=== PATIENT | male | born 1995 | race Caucasian/White ===

== ENCOUNTER 2017-09-16 18:53 | Emergency (ER) | payer OTHER ==
[~2017-09-16] VITALS: Ht 165.1 cm; Wt 107.0 kg
[2017-09-16 19:21] VITALS: Ht 165.1 cm; Wt 107.0 kg
[2017-09-16] MEDS ORDERED: LEVALBUTEROL (NEB) 1.25 MG/0.5 ML AMP INH STA (20:37)
[2017-09-16] MEDS ORDERED: IPRATROPIUM (NEB) 0.5 MG/2.5 ML AMP NEB STA (20:37)
[2017-09-16] MEDS ORDERED: predniSONE 20 MG TAB PO STA (20:37)
--- NOTE | 2017-09-16 21:38 | RADRPT ---
PROCEDURE: XR Chest. CLINICAL INDICATION: chest pain TECHNIQUE: Single frontal view of the chest was obtained COMPARISON: None FINDINGS: The heart and mediastinum are within normal limits. There are left mid lung and left lower lobe linear atelectatic changes. The lungs are otherwise clear. There is no pleural effusion or pneumothorax. RPTAT: AA IMPRESSION: Scattered left lung atelectatic changes. .Logan Cardoza MD, MD Date Time Electronically viewed and signed by .Logan Cardoza MD, on 09/16/2017 21:38 .S/
[2017-09-16] MEDS ORDERED: PRED20TA PO (22:29)
[2017-09-16] MEDS ORDERED: ALBU8.5H3 INH (22:29)
--- NOTE | 2017-09-16 22:36 | ERD ---
ER Documentation Chief Complaint Chief Complaint PT REQUESTS MED REFILL FOR HIS INHALER HPI Patient is a 21-year-old male with a past medical history of asthma presents to the ED for concerns of a refill for his inhaler. Patient states for the last 4 days he has had a dry cough. Patient reports worse cough at night. Patient also does report some clear rhinorrhea. Patient has occasional wheezing. Patient denies any fevers, chills, nausea, vomiting, chest pain, shortness of breath or loss consciousness. No recent travel. No sick contacts. ROS All systems reviewed and are negative except as per history of present illness. Medications Home Meds Active Scripts Albuterol Sulfate* (Proair HFA*) 8.5 Gm Hfa.aer.ad, 2 PUFF INH Q4, #1 INHALER Prov:CARLOS EDUARDO MENEZES PA-C 09/16/17 Prednisone* (Prednisone*) 20 Mg Tab, 40 MG PO DAILY for 4 Days, TAB Prov:CARLOS EDUARDO MENEZES PA-C 09/16/17 Allergies Allergies: Coded Allergies: No Known Allergy (Unverified , 09/16/17) PMhx/Soc History of Surgery: No Anesthesia Reaction: No Hx Neurological Disorder: No Hx Respiratory Disorders: Yes (asthma) Hx Cardiac Disorders: No Hx Psychiatric Problems: No Hx Miscellaneous Medical Probl: No Hx Alcohol Use: No Hx Substance Use: No Hx Tobacco Use: No FmHx Family History: No diabetes Physical Exam Vitals Vital Signs Date Time Temp Pulse Resp B/P Pulse Ox O2 Delivery O2 Flow Rate FiO2 09/16/17 22:40 98.5 87 18 120/75 99 Room Air 09/16/17 21:30 Vapotherm 10 09/16/17 20:52 104 20 98 21 09/16/17 19:21 98.8 103 18 123/78 96 Physical Exam GENERAL: Well-developed, well-nourished male. Appears in no acute distress. Speaking in full sentences. HEAD: Normocephalic, atraumatic. EYES: Pupils are equally reactive bilaterally. EOMs grossly intact. No conjunctival erythema. ENT: Moist mucous membranes. No uvula deviation. No kissing tonsils. NECK: Supple. No meningismus. Normal range of motion of the neck. LUNG: Normal expiratory wheezes noted bilaterally. No abdominal retractions, no nasal flaring, no tripoding. HEART: Regular rate and rhythm. EXTREMITIES: Equal pulses bilaterally. No peripheral clubbing, cyanosis or edema. No unilateral leg swelling. NEUROLOGIC: Alert and oriented. Moving all four extremities without any difficulty. Normal speech. Steady gait. SKIN: Normal color. Warm and dry. No rashes or lesions. Results 24 hrs Current Medications Medications (Trade) Dose Ordered Sig/Jacey Route PRN Reason Start Time Stop Time Status Last Admin Dose Admin Ipratropium [place] (Atrovent 0.02% (Neb)) 0.5 mg ONCE STAT NEB 09/16/17 20:37 09/16/17 20:38 DC 09/16/17 20:52 Prednisone (Prednisone) 60 mg ONCE STAT PO 09/16/17 20:37 09/16/17 20:38 DC 09/16/17 21:28 Levalbuterol (Xopenex Neb) 1.25 mg ONCE STAT INH 09/16/17 20:37 09/16/17 20:38 DC 09/16/17 20:52 Procedures/MDM ED COURSE: The patient was stable throughout ED course. I kept the patient and/or family informed of laboratory and diagnostic imaging results throughout the ED course. DIAGNOSTIC IMAGING: Read by radiologist. DIAGNOSTIC IMAGING REPORT Patient: JAZLYN PALMER : 1995 Age: 21 Sex: M MR #: [id number] DOS: 09/16/172036 Ordering MD: CARLOS EDUARDO MENEZES PA-C Location: [facility] Room/Bed: PROCEDURE: XR Chest. CLINICAL INDICATION: chest pain TECHNIQUE: Single frontal view of the chest was obtained COMPARISON: None FINDINGS: The heart and mediastinum are within normal limits. There are left mid lung and left lower lobe linear atelectatic changes. The lungs are otherwise clear. There is no pleural effusion or pneumothorax. RPTAT: AA IMPRESSION: Scattered left lung atelectatic changes. .Logan Cardoza MD, Date Time Electronically viewed and signed by .Logan Cardoza MD, on 09/16/2017 21: 38 .S/ CC: CARLOS EDUARDO MENEZES PA-C PROCEDURES: None. MEDICATIONS GIVEN: Prednisone, ipratropium, Xopenex Patient tolerated medication well with no adverse reactions. MEDICAL DECISION MAKING: This is a 21-year-old male who presents to the ED for concerns of a dry cough for the last 4 days as well as a refill for of his albuterol inhaler. Vital signs were reviewed. Patient was afebrile. Patient was not hypoxic. ENT exam was normal. Lung exam revealed minimal bilateral expiratory wheezes. Patient was given a breathing treatment here in the ED as well as prednisone. Patient was noted to have improved breath sounds on my reexamination.. Patient continued to have no nasal flaring, no tripoding, no abdominal retractions. Chest x-ray showed scattered left lung atelectatic changes. Given these findings, the patient's presentation is most consistent with an exacerbation secondary to viral illness. Low suspicion for pneumothorax, pleural effusion,, pneumonia, meningitis, sinusitis, otitis externa, acute otitis media, strep pharyngitis, epiglottitis or peritonsillar abscess. Patient was nontoxic, non- ill-appearing prior to discharge. Her symptoms are significantly improved and felt that he wished to go home. PRESCRIPTIONS: Prednisone, albuterol inhaler DISCHARGE: At this time, patient is stable for discharge and outpatient management. Supportive therapies such as OTC throat lozenges, salt water gurgles, popsicles and jello discussed. I have instructed the patient to follow-up with his/her primary care physician in 1-2 days. I have instructed the patient to promptly return to the ER for any new or worsening symptoms including increased pain, swelling, fever, nausea, vomiting, weakness or difficulty breathing. The patient and/or family expressed understanding of and agreement with this plan. All questions were answered. Home care instructions were provided. Disclaimer: Inadvertent spelling and grammatical errors are likely due to EHR/ dictation software use and do not reflect on the overall quality of patient care. Also, please note that the electronic time recorded on this note does not necessarily reflect the actual time of the patient encounter. Departure Diagnosis: Primary Impression: Asthma with acute exacerbation Asthma severity: unspecified severity Asthma persistence: unspecified Qualified Code: J45.902 - Asthma with acute exacerbation, unspecified asthma severity, unspecified whether persistent Condition: Stable Patient Instructions: Asthma, Acute (Adult) Referrals: [facility] YOU HAVE RECEIVED A MEDICAL SCREENING EXAM AND THE RESULTS INDICATE THAT YOU DO NOT HAVE A CONDITION THAT REQUIRES URGENT TREATMENT IN THE EMERGENCY DEPARTMENT. FURTHER EVALUATION AND TREATMENT OF YOUR CONDITION CAN WAIT UNTIL YOU ARE SEEN IN YOUR DOCTORS OFFICE WITHIN THE NEXT 1-2 DAYS. IT IS YOUR RESPONSIBILITY TO MAKE AN APPOINTMENT FOR FOLOW-UP CARE. IF YOU HAVE A PRIMARY DOCTOR --you should call your primary doctor and schedule an appointment IF YOU DO NOT HAVE A PRIMARY DOCTOR YOU CAN CALL OUR PHYSICIAN REFERRAL HOTLINE AT IF YOU CAN NOT AFFORD TO SEE A PHYSICIAN YOU CAN CHOSE FROM THE FOLLOWING [facility] [address] [facility] [address] [facility]. [facility] [address] [facility] [address] [facility] [address] [facility]. [facility] [address] [facility]. [facility] YOU HAVE RECEIVED A MEDICAL SCREENING EXAM AND THE RESULTS INDICATE THAT YOU DO NOT HAVE A CONDITION THAT REQUIRES URGENT TREATMENT IN THE EMERGENCY DEPARTMENT. FURTHER EVALUATION AND TREATMENT OF YOUR CONDITION CAN WAIT UNTIL YOU ARE SEEN IN YOUR DOCTORS OFFICE WITHIN THE NEXT 1-2 DAYS. IT IS YOUR RESPONSIBILITY TO MAKE AN APPOINTMENT FOR FOLOW-UP CARE. IF YOU HAVE A PRIMARY DOCTOR --you should call your primary doctor and schedule and appointment IF YOU DO NOT HAVE A PRIMARY DOCTOR YOU CAN CALL OUR PHYSICIAN REFERRAL HOTLINE AT . IF YOU CAN NOT AFFORD TO SEE A PHYSICIAN YOU CAN CHOSE FROM THE FOLLOWING [facility] IN[facility]: [facility] [address] [place] [address] [facility] [address] [place] [address] [facility] [address] [place] [address] Additional Instructions: Call your primary care doctor TOMORROW for an appointment during the next 1-2 days.See the doctor sooner or return here if your condition worsens before your appointment time. CARLOS EDUARDO MENEZES PA-C Sep 16, 2017 22:36
[2017-09-16 22:40] VITALS: BP 120/75; PULSE 87; RESP 18; TEMP 98.5
== END 2017-09-16 22:40 | disposition home or self-care (01) ==
LOC: FTE 18:53
DX: J45.901 Unspecified asthma with (acute) exacerbation (principal)
CPT/HCPCS: 71010; 94664; 99284; J7512